=== PATIENT | male | born 1970 | race Caucasian/White ===

== ENCOUNTER 2018-02-12 18:18 | Emergency (ER) | payer SELFPAY ==
--- NOTE | 2018-02-12 19:20 | RAD REPORT ---
EXAM DESCRIPTION: RAD - Foot Right 3 View - 02/12/2018 7:13 pm CLINICAL HISTORY: Right foot pain and swelling FINDINGS: Soft tissue ulceration involves the lateral forefoot. No bony destructive lesion is seen. An old fracture of the fifth metatarsal is suspected. The bones are osteoporotic Large calcaneal spur is seen
--- NOTE | 2018-02-12 19:27 | EDPHYS ---
Physician Documentation [facility] Name: Krishna Fagan Age: 47 yrs Sex: Male : 1970 Arrival Date: 02/12/2018 Time: 18:21 Bed 14 Private MD: None, None ED Physician Baudilio Catherine HPI: 02/12 19:16 This 47 yrs old Male presents to ER via Ambulatory with complaints of Feet snw Swelling. 19:16 The patient presents with pain, swelling, to callus at lateral right foot. The snw complaints affect the right foot. Context: The problem was sustained at home. Onset: The symptoms/episode began/occurred gradually. Associated signs and symptoms: The patient has no apparent associated signs or symptoms. Severity of symptoms: At their worst the symptoms were moderate. It is unknown whether or not the patient has had similar symptoms in the past. The patient has been recently seen by a physician: other ED, labs performed per pt report, pt taking Cipro and Bactrim since Saturday 4 days ago. Historical: - Allergies: 18:27 PENICILLINS; hj - Home Meds: 18:27 Humulin 70/30 100 unit/mL (70-30) Sub-Q susp [Active]; gabapentin oral oral [Active]; hj - PMHx: 18:27 Diabetes - NIDDM; neuropathy; hj - PSHx: 18:27 Appendectomy; hj - Immunization history:: Adult Immunizations up to date. - Social history:: Smoking status: Patient/guardian denies using tobacco, Patient/guardian denies using alcohol. - Ebola Screening: : Patient negative for fever greater than or equal to 101.5 degrees Fahrenheit, and additional compatible Ebola Virus Disease symptoms Patient denies exposure to infectious person Patient denies travel to an Ebola-affected area in the 21 days before illness onset. ROS: 19:15 Constitutional: Negative for fever, chills, and weight loss, Eyes: Negative for injury, snw pain, redness, and discharge, ENT: Negative for injury, pain, and discharge, Neck: Negative for injury, pain, and swelling, Cardiovascular: Negative for chest pain, palpitations, and edema, Respiratory: Negative for shortness of breath, cough, wheezing, and pleuritic chest pain, Abdomen/GI: Negative for abdominal pain, nausea, vomiting, diarrhea, and constipation, Back: Negative for injury and pain, : Negative for injury, bleeding, discharge, and swelling, Skin: Negative for injury, rash, and discoloration, Neuro: Negative for headache, weakness, numbness, tingling, and seizure. 19:15 MS/extremity: Positive for pain, of the right foot. Exam: 19:06 Constitutional: This is a well developed, well nourished patient who is awake, alert, snw and in no acute distress. Head/Face: Normocephalic, atraumatic. Eyes: Pupils equal round and reactive to light, extra-ocular motions intact. Lids and lashes normal. Conjunctiva and sclera are non-icteric and not injected. Cornea within normal limits. Periorbital areas with no swelling, redness, or edema. Chest/axilla: Normal chest wall appearance and motion. Nontender with no deformity. No lesions are appreciated. Cardiovascular: Regular rate and rhythm with a normal S1 and S2. No gallops, murmurs, or rubs. Normal PMI, no JVD. No pulse deficits. Respiratory: Lungs have equal breath sounds bilaterally, clear to auscultation and percussion. No rales, rhonchi or wheezes noted. No increased work of breathing, no retractions or nasal flaring. Abdomen/GI: Soft, non-tender, with normal bowel sounds. No distension or tympany. No guarding or rebound. No evidence of tenderness throughout. Back: No spinal tenderness. No costovertebral tenderness. Full range of motion. MS/ Extremity: Pulses equal, no cyanosis. Neurovascular intact. Full, normal range of motion. Neuro: Awake and alert, GCS 15, oriented to person, place, time, and situation. Cranial nerves II-XII grossly intact. Motor strength 5/5 in all extremities. Sensory grossly intact. Cerebellar exam normal. Normal gait. Psych: Awake, alert, with orientation to person, place and time. Behavior, mood, and affect are within normal limits. 19:06 Skin: Appearance: Color: pale, lesion(s), noted, and can be described as raised, opened callus to right lateral midfoot with minimal surrounding erythema. Vital Signs: 18:28 BP 125 / 85; Pulse 101; Resp 18; Temp 97.8(TE); Pulse Ox 97% on R/A; Weight 97.52 kg; hj Height 5 ft. 11 in. (180.34 cm); Pain 10/10; 19:22 BP 128 / 90; Pulse 92; Resp 18; Pulse Ox 96% on R/A; Pain 10/10; jb4 18:28 Body Mass Index 29.99 (97.52 kg, 180.34 cm) hj MDM: 18:54 Patient medically screened. snw 19:28 Data reviewed: vital signs, nurses notes. Data interpreted: Pulse oximetry: on room air snw is 96 %. Interpretation: acceptable. Counseling: I had a detailed discussion with the patient and/or guardian regarding: the historical points, exam findings, and any diagnostic results supporting the discharge/admit diagnosis, the presence of at least one elevated blood pressure reading (>120/80) during this emergency department visit, radiology results, the need for outpatient follow up, to return to the emergency department if symptoms worsen or persist or if there are any questions or concerns that arise at home. Special discussion: I have referred the patient to see his PCP for further evaluation of high blood pressure. I discussed in detail with the patient the higher chance of wound infection based on his presenting history. Based on the history and exam findings, there is no indication for further emergent testing or inpatient evaluation. I discussed with the patient/guardian the need to see the department specialist for further evaluation of the symptoms. I discussed with the patient/guardian the need to see the primary care provider for further evaluation of the symptoms. 02/12 18:53 Order name: Foot Right 3 View XRAY; Complete Time: 19:24 snw 02/12 19:05 Order name: FSBS; Complete Time: 19:23 snw 02/12 19:25 Order name: Wound Care; Complete Time: 19:37 snw Administered Medications: 19:37 Drug: [place] 5 mg-325 mg 1 tabs Route: PO; jb4 19:37 Drug: Hibiclens 4 % 1 application Route: Topical; Site: wound; jb4 Point of Care Testing: Blood Glucose: 19:22 Blood Glucose: 254 mg/dL; jb4 Ranges: Critical Glucose Levels:Adult <50 mg/dl or >400 mg/dl <40 mg/dl or >180 mg/dl Disposition: 02/13 07:14 Co-signature as Attending Physician, Baudilio Catherine MD I agree with the assessment and lulu plan of care. Disposition: 02/12/18 19:26 Discharged to Home. Impression: Pain in right foot. - Condition is Stable. - Discharge Instructions: Musculoskeletal Pain, Heat Therapy. - Prescriptions for Tylenol- Codeine #3 300-30 mg Oral Tablet - take 2 tablets by ORAL route every 6 hours As needed; 10 tablet. - Work release form, Medication Reconciliation Form, Thank You Letter, Antibiotic Education, Prescription Opioid Use form. - Follow up: Private Physician; When: Tomorrow; Reason: Recheck today's complaints, Continuance of care, Re-evaluation by your physician. Follow up: Emergency Department; When: As needed; Reason: Worsening of condition. - Notes: Please continue Cipro and Bactrim as directed per [facility] Signatures: Dispatcher [employer] EDMS Baudilio Catherine MD MD cha Therrien, Shelly, MAINTENANCE AND UTILITIES SUPERVISOR-C MAINTENANCE AND UTILITIES SUPERVISOR-Csnw Jean Marie Miller RN RN Elier Zuniga RN RN jb4 Corrections: (The following items were deleted from the chart) 02/12 19:53 19:26 02/12/2018 19:26 Discharged to Home. Impression: Pain in right foot. Condition is jb4 Stable. Forms are Medication Reconciliation Form, Thank You Letter, Antibiotic Education, Prescription Opioid Use. Follow up: Private Physician; When: Tomorrow; Reason: Recheck today's complaints, Continuance of care, Re-evaluation by your physician. Follow up: Emergency Department; When: As needed; Reason: Worsening of condition. snw
--- NOTE | 2018-02-12 19:27 | ER ---
Nurse's Notes [facility] Name: Krishna Fagan Age: 47 yrs Sex: Male : 1970 Arrival Date: 02/12/2018 Time: 18:21 Bed 14 Private MD: None, None Diagnosis: Pain in right foot Presentation: 02/12 18:23 Presenting complaint: Patient states: i have a large decubitus ulcer on the R side of hj my R foot, went to [facility], they did blood work, started with Cipro and Bactrim, but i feel its getting worse; it is foul smelling and its draining black colored discharges; reports fever and chills; pain is 10/10;. Transition of care: patient was not received from another setting of care. Onset of symptoms was February 12, 2018. Risk Assessment: Do you want to hurt yourself or someone else? Patient reports no desire to harm self or others. Initial Sepsis Screen: Does the patient meet any 2 criteria? No. Patient's initial sepsis screen is negative. Does the patient have a suspected source of infection? No. Patient's initial sepsis screen is negative. Care prior to arrival: None. 18:23 Method Of Arrival: Ambulatory 18:23 Acuity: GENNY 3 hj Triage Assessment: 18:27 General: Appears in no apparent distress. uncomfortable, Behavior is calm, cooperative, hj appropriate for age. Pain: Complains of pain in right foot. Historical: - Allergies: 18:27 PENICILLINS; hj - Home Meds: 18:27 Humulin 70/30 100 unit/mL (70-30) Sub-Q susp [Active]; gabapentin oral oral [Active]; hj - PMHx: 18:27 Diabetes - NIDDM; neuropathy; hj - PSHx: 18:27 Appendectomy; hj - Immunization history:: Adult Immunizations up to date. - Social history:: Smoking status: Patient/guardian denies using tobacco, Patient/guardian denies using alcohol. - Ebola Screening: : Patient negative for fever greater than or equal to 101.5 degrees Fahrenheit, and additional compatible Ebola Virus Disease symptoms Patient denies exposure to infectious person Patient denies travel to an Ebola-affected area in the 21 days before illness onset. Screenin:28 Abuse screen: Denies threats or abuse. Denies injuries from another. Nutritional hj screening: No deficits noted. Tuberculosis screening: No symptoms or risk factors identified. Fall Risk None identified. Assessment: 18:45 General: Appears in no apparent distress. uncomfortable, Behavior is cooperative, bp appropriate for age, anxious. Pain: Complains of pain in right foot. Neuro: Level of Consciousness is awake, alert, obeys commands, Oriented to person, place, time, situation, Appropriate for age. Cardiovascular: No deficits noted. Respiratory: Airway is patent Respiratory effort is even, unlabored, Respiratory pattern is regular, symmetrical. GI: No signs and/or symptoms were reported involving the gastrointestinal system. : No signs and/or symptoms were reported regarding the genitourinary system. EENT: No deficits noted. Derm: Wound noted right foot. Musculoskeletal: Circulation, motion, and sensation intact. Range of motion: intact in all extremities. Vital Signs: 18:28 BP 125 / 85; Pulse 101; Resp 18; Temp 97.8(TE); Pulse Ox 97% on R/A; Weight 97.52 kg; hj Height 5 ft. 11 in. (180.34 cm); Pain 10/10; 19:22 BP 128 / 90; Pulse 92; Resp 18; Pulse Ox 96% on R/A; Pain 10/10; jb4 18:28 Body Mass Index 29.99 (97.52 kg, 180.34 cm) hj ED Course: 18:21 Patient arrived in ED. mr 18:21 None, None is Private Physician. mr 18:26 Triage completed. hj 18:28 Arm band placed on left wrist. hj 18:28 Patient has correct armband on for positive identification. Placed in gown. Bed in low hj position. Call light in reach. Side rails up X 1. Adult w/ patient. 18:36 Nahum Villarreal, LIO is Primary Nurse. bp 18:54 Елена Light FNP-C is PHCP. snw 18:54 Baudilio Catherine MD is Attending Physician. snw 19:11 X-ray completed. Portable x-ray completed in exam room. Patient tolerated procedure az well. 19:13 Foot Right 3 View XRAY In Process Unspecified. EDMS 19:50 Ortho shoe applied to. jb4 19:50 No provider procedures requiring assistance completed. Patient did not have IV access jb4 during this emergency room visit. Administered Medications: 19:37 Drug: [place] 5 mg-325 mg 1 tabs Route: PO; jb4 19:37 Drug: Hibiclens 4 % 1 application Route: Topical; Site: wound; jb4 Point of Care Testing: Blood Glucose: 19:22 Blood Glucose: 254 mg/dL; jb4 Ranges: Outcome: 19:26 Discharge ordered by MD. thurston 19:50 Discharged to home ambulatory. jb4 19:50 Condition: stable 19:50 Discharge instructions given to patient, family, Instructed on discharge instructions, follow up and referral plans. medication usage, Demonstrated understanding of instructions, follow-up care, medications, Prescriptions given X 1. 19:53 Patient left the ED. jb4 Signatures: Dispatcher [employer] EDMS Елена Light, POLYMER SPECIALIST-C POLYMER SPECIALIST-Csnriver DonavonConsuelo mr BloomJean Marie pike RN RN hj Bryson, James, RN RN jb4 Nahum Villarreal RN RN bp Zavala, Araceli az
[2018-02-12] MEDS ORDERED: HYDROCODONE/APAP 5/325 MG TAB ONE (19:36)
== END 2018-02-12 19:53 | disposition home or self-care (01) ==
LOC: ER 18:18
DX: M79.671 Pain in right foot (principal); E11.40 Type 2 diabetes mellitus with diabetic neuropathy, unspecified; Z79.4 Long term (current) use of insulin; Z88.0 Allergy status to penicillin
CPT/HCPCS: 82962; 99284

== ENCOUNTER 2018-04-14 12:31 | Emergency (ER) | payer OTHER, SELFPAY ==
--- OUTSIDE RECORDS SUMMARY | 2018-04-14 12:34 | XMS REPORT ---
:1970 [facility] Address [address] [place] [address] [place] [id number] Care Team Providers Name Role Phone Unavailable Unavailable Unavailable Problems This patient has no known problems. Allergies, Adverse Reactions, Alerts This patient has no known allergies or adverse reactions. Medications This patient has no known medications.
[2018-04-14] MEDS ORDERED: ONDANSETRON 4 MG/2 ML VIAL ONE (14:21)
[2018-04-14] MEDS ORDERED: NA CHLORIDE 0.9% 1,000 ML ONE (14:21)
--- NOTE | 2018-04-14 14:29 | RAD REPORT ---
EXAM DESCRIPTION: CT - Stone Protocol - 04/14/2018 2:13 pm CLINICAL HISTORY: Flank pain. ABD PAIN COMPARISON: No comparisons TECHNIQUE: Axial images were obtained without oral or IV contrast. Lack of contrast limits solid org an and vascular assessment. The [id number] spans the entirety of the system partially obscuring uppermost abdomen and lung bases. Coronal reformatted images were obtained and reviewed. All CT scans are performed using dose optimization technique as appropriate and may include automated exposure control or mA/KV adjustment according to patient size. FINDINGS: The lower lung orellana are clear. The hepatic size is mildly prominent. Gallbladder appears mildly distended. Spleen is normal in size. The pancreas and adrenal glands are normal. No pathologic lymphadenopathy in the abdomen or pelvis. No urinary tract stones or obstructive uropathy. No bowel obstruction, free air, free fluid or abscess. Appendectomy. No significant bony abnormality. IMPRESSION: Hepatomegaly. Mild gallbladder distention.
[2018-04-14 14:38] LABS: Absolute Lymphocytes (CBC) 1.5 K/uL (0.7-4.9); Absolute Monocytes 0.7 K/uL (0.1-1.3); Absolute Neutrophil 8.1 K/uL (1.8-8.0); Basophils % 0.5 % (0-1.3); Eosinophils % 1.1 % (0-4.4); Hematocrit 34.9 % (39.6-49.0); Lymphocytes % 14.4 % (15.3-44.8); MCH 29.9 pg (27.0-35.0); MCV 85.1 fL (80-100)
[2018-04-14 14:46] LABS: Albumin 2.9 g/dL (3.4-5.0); Bilirubin Direct 0.1 mg/dL (0-0.2); Bilirubin Total 0.3 mg/dL (0.2-1.0); Protein, Total 9.3 g/dL (6.4-8.2)
[2018-04-14] MEDS ORDERED: SUCRALFATE 1 GM TABLET ONE (16:03)
[2018-04-14] MEDS ORDERED: METOCLOPRAMIDE 10 MG/2mL INJ ONE (17:15)
--- NOTE | 2018-04-14 17:46 | ER ---
Nurse's Notes [facility] Name: Krishna Fagan Age: 47 yrs Sex: Male : 1970 Arrival Date: 04/14/2018 Time: 12:36 Bed 18 Private MD: Diagnosis: Vomiting;Dehydration Presentation: 04/14 12:36 Presenting complaint: EMS states: i have been vomiting for 9 days and the zofran tw2 [place] gave me is not helping. Transition of care: patient was not received from another setting of care. Onset of symptoms was April 14, 2018. Risk Assessment: Do you want to hurt yourself or someone else? Patient reports no desire to harm self or others. Initial Sepsis Screen: Does the patient meet any 2 criteria? No. Patient's initial sepsis screen is negative. Does the patient have a suspected source of infection? No. Patient's initial sepsis screen is negative. Care prior to arrival: Medication(s) given: zofran IM, multiple failed iv attempts via ems. 12:36 Method Of Arrival: EMS: [facility] [place] [place] [facility] tw2 12:36 Acuity: GENNY 3 tw2 Historical: - Allergies: 12:41 PENICILLINS; tw2 - Home Meds: 12:41 Humulin 70/30 100 unit/mL (70-30) Sub-Q susp [Active]; gabapentin Oral [Active]; tw2 - PMHx: 12:41 neuropathy; Diabetes - IDDM; tw2 - PSHx: 12:41 Appendectomy; tw2 - Immunization history:: Adult Immunizations. - Social history:: Smoking status: . - Ebola Screening: : Patient negative for fever greater than or equal to 101.5 degrees Fahrenheit, and additional compatible Ebola Virus Disease symptoms Patient denies travel to an Ebola-affected area in the 21 days before illness onset. Screenin:43 Abuse screen: Denies threats or abuse. Nutritional screening: No deficits noted. tw2 Tuberculosis screening: No symptoms or risk factors identified. Fall Risk None identified. Assessment: 12:40 General: Appears in no apparent distress. Behavior is calm, cooperative, appropriate tw2 for age. Pain: Complains of pain in mid-sternal area, epi-gastric pain. Neuro: Level of Consciousness is awake, alert, obeys commands, Oriented to person, place, time, situation. Cardiovascular: Heart tones S1 S2 Patient's skin is warm and dry. Respiratory: Airway is patent Respiratory effort is even, unlabored, Respiratory pattern is regular, symmetrical, Breath sounds are clear bilaterally. GI: Abdomen is round distended, Bowel sounds present X 4 quads. Reports nausea, vomiting, for 9 days, they gave zofran but i cant keep it down. : No signs and/or symptoms were reported regarding the genitourinary system. EENT: No signs and/or symptoms were reported regarding the EENT system. Derm: Skin is intact, with poor turgor Skin is dry, Skin is pale. Musculoskeletal: Range of motion: intact in all extremities. 13:42 Reassessment: dr. delgado at bedside at this time. tw2 15:00 Reassessment: Patient appears in no apparent distress at this time. No changes from tw2 previously documented assessment. Patient and/or family updated on plan of care and expected duration. Pain level reassessed. 16:02 Reassessment: Patient appears in no apparent distress at this time. No changes from tw2 previously documented assessment. Patient and/or family updated on plan of care and expected duration. Pain level reassessed. 16:11 Reassessment: pt states "i just feel this burning up here, cant they just keep me tw2 overnight to monitor me", provider notified. 17:11 Reassessment: Patient appears in no apparent distress at this time. No changes from tw2 previously documented assessment. Patient and/or family updated on plan of care and expected duration. Pain level reassessed. 17:49 Reassessment: Patient appears in no apparent distress at this time. Patient and/or tw2 family updated on plan of care and expected duration. Pain level reassessed. Patient states feeling better. Vital Signs: 12:37 Temp 98.9(O); tw2 12:39 BP 154 / 89; Pulse 99; Resp 17; Pulse Ox 98% on R/A; tw2 13:28 BP 142 / 79; Pulse 91; Resp 17; Pulse Ox 97% on R/A; tw2 15:00 BP 147 / 88; Pulse 94; Resp 17; Pulse Ox 96% on R/A; tw2 16:02 BP 162 / 93; Pulse 92; Resp 17; Pulse Ox 96% on R/A; tw2 17:10 BP 160 / 93; Pulse 87; Resp 17; Pulse Ox 95% on R/A; tw2 17:49 BP 151 / 99; Pulse 86; Resp 17; Pulse Ox 99% on R/A; tw2 ED Course: 12:36 Patient arrived in ED. tw2 12:37 Triage completed. tw2 12:37 Arm band placed on. tw2 12:39 Carmen Torres RN is Primary Nurse. tw2 12:41 Side rails up X2. Adult w/ patient. residential monitor on. Pulse ox on. NIBP on. tw2 12:52 Wagner Delgado MD is Attending Physician. gs 13:08 Missed attempt(s): 22 gauge in right antecubital area. Bleeding controlled, band aid tw2 applied, catheter tip intact. Missed attempt(s): 22 gauge in left wrist. Bleeding controlled, band aid applied, catheter tip intact. 13:42 Missed attempt(s): 22 gauge in right forearm. per Maynor Morales, notified Dr. Delgado. tw2 14:11 Inserted saline lock: 18 gauge in right upper arm, using aseptic technique. ,using tw2 aseptic technique. per LIO Sidhu using US guided technique Blood collected. 14:12 CT completed. Patient tolerated procedure well. Patient moved to CT via wheelchair. sj Patient moved back from CT. 14:23 CT Stone Protocol In Process Unspecified. EDMS 16:01 Troponin I Sent. tw2 16:02 EKG done, by supply chain tech. reviewed by Wagner Delgado MD. dt2 17:49 No provider procedures requiring assistance completed. IV discontinued, intact, tw2 bleeding controlled, No redness/swelling at site. Pressure dressing applied. Administered Medications: 14:22 Drug: NS 0.9% 1000 ml Route: IV; Rate: 1 bolus; Site: right upper arm; tw2 16:01 Follow up: Response: No adverse reaction; IV Status: Completed infusion; IV Intake: tw2 1000ml 14:22 Drug: Zofran 4 mg Route: IVP; Site: right upper arm; tw2 16:01 Follow up: Response: No adverse reaction; Nausea is decreased tw2 15:56 Drug: CarafATE 1 grams Route: PO; tw2 17:10 Follow up: Response: No adverse reaction tw2 17:10 Drug: Reglan 10 mg Route: IVP; Site: right upper arm; tw2 17:49 Follow up: Response: No adverse reaction; Nausea is decreased tw2 Intake: 16:01 IV: 1000ml; Total: 1000ml. tw2 Outcome: 17:45 Discharge ordered by . 17:50 Discharged to home ambulatory, with significant other. tw2 17:50 Condition: stable 17:50 Discharge instructions given to patient, significant other, Instructed on discharge instructions, follow up and referral plans. medication usage, Demonstrated understanding of instructions, follow-up care, medications, Prescriptions given X 2. 17:50 Patient left the ED. tw2 Signatures: Dispatcher [employer] Lisa Cooper Tara, RN RN tw2 Wagner Delgado MD MD gs Teague, Danielle dt2
--- NOTE | 2018-04-14 17:46 | EDPHYS ---
Physician Documentation [facility] Name: Krishna Fagan Age: 47 yrs Sex: Male : 1970 Arrival Date: 04/14/2018 Time: 12:36 Bed 18 Private MD: ED Physician Wagner Perez HPI: 04/14 18:39 This 47 yrs old Male presents to ER via EMS with complaints of Vomiting. gs 18:39 Onset: The symptoms/episode began/occurred 3 day(s) ago. Possible causes: dx with flu. gs The symptoms are aggravated by nothing. The symptoms are alleviated by nothing. Associated signs and symptoms: Pertinent negatives: abdominal pain, anorexia, GI bleeding. Severity of symptoms: At their worst the symptoms were moderate in the emergency department the symptoms are unchanged. The patient has experienced similar episodes in the past, a few times. The patient has been recently seen by a physician: zuleyma moore. Historical: - Allergies: 12:41 PENICILLINS; tw2 - Home Meds: 12:41 Humulin 70/30 100 unit/mL (70-30) Sub-Q susp [Active]; gabapentin Oral [Active]; tw2 - PMHx: 12:41 neuropathy; Diabetes - IDDM; tw2 - PSHx: 12:41 Appendectomy; tw2 - Immunization history:: Adult Immunizations. - Social history:: Smoking status: . - Ebola Screening: : Patient negative for fever greater than or equal to 101.5 degrees Fahrenheit, and additional compatible Ebola Virus Disease symptoms Patient denies travel to an Ebola-affected area in the 21 days before illness onset. ROS: 18:39 All other systems are negative. gs Exam: 18:39 Head/Face: Normocephalic, atraumatic. Eyes: Pupils equal round and reactive to light, gs extra-ocular motions intact. Lids and lashes normal. Conjunctiva and sclera are non-icteric and not injected. Cornea within normal limits. Periorbital areas with no swelling, redness, or edema. ENT: Nares patent. No nasal discharge, no septal abnormalities noted. Tympanic membranes are normal and external auditory canals are clear. Oropharynx with no redness, swelling, or masses, exudates, or evidence of obstruction, uvula midline. Mucous membranes moist. Neck: Trachea midline, no thyromegaly or masses palpated, and no cervical lymphadenopathy. Supple, full range of motion without nuchal rigidity, or vertebral point tenderness. No Meningismus. Chest/axilla: Normal chest wall appearance and motion. Nontender with no deformity. No lesions are appreciated. Cardiovascular: Regular rate and rhythm with a normal S1 and S2. No gallops, murmurs, or rubs. Normal PMI, no JVD. No pulse deficits. Respiratory: Lungs have equal breath sounds bilaterally, clear to auscultation and percussion. No rales, rhonchi or wheezes noted. No increased work of breathing, no retractions or nasal flaring. Back: No spinal tenderness. No costovertebral tenderness. Full range of motion. Skin: Warm, dry with normal turgor. Normal color with no rashes, no lesions, and no evidence of cellulitis. MS/ Extremity: Pulses equal, no cyanosis. Neurovascular intact. Full, normal range of motion. Neuro: Awake and alert, GCS 15, oriented to person, place, time, and situation. Cranial nerves II-XII grossly intact. Motor strength 5/5 in all extremities. Sensory grossly intact. Cerebellar exam normal. Normal gait. 18:39 Constitutional: The patient appears alert, awake, pale, uncomfortable. 18:39 ECG was reviewed by the Attending Physician. 18:39 Abdomen/GI: Palpation: mild abdominal tenderness, in all quadrants, rebound tenderness, is not appreciated. Vital Signs: 12:37 Temp 98.9(O); tw2 12:39 BP 154 / 89; Pulse 99; Resp 17; Pulse Ox 98% on R/A; tw2 13:28 BP 142 / 79; Pulse 91; Resp 17; Pulse Ox 97% on R/A; tw2 15:00 BP 147 / 88; Pulse 94; Resp 17; Pulse Ox 96% on R/A; tw2 16:02 BP 162 / 93; Pulse 92; Resp 17; Pulse Ox 96% on R/A; tw2 17:10 BP 160 / 93; Pulse 87; Resp 17; Pulse Ox 95% on R/A; tw2 17:49 BP 151 / 99; Pulse 86; Resp 17; Pulse Ox 99% on R/A; tw2 MDM: 13:48 Patient medically screened. gs 18:39 Differential diagnosis: gastritis, viral gastroenteritis, gastroenteritis, dka. Data gs reviewed: vital signs, nurses notes, lab test result(s), EKG, radiologic studies. Response to treatment: the patient's symptoms have markedly improved after treatment, the patient's condition has returned to base line, patient is well hydrated. and as a result, I will discharge patient. 04/14 13:50 Order name: Basic Metabolic Panel; Complete Time: 15:12 gs 04/14 13:50 Order name: CBC with Diff; Complete Time: 15:12 gs 04/14 13:50 Order name: Hepatic Function; Complete Time: 15:12 gs 04/14 13:50 Order name: Lipase; Complete Time: 15:12 gs 04/14 13:52 Order name: Glucose, Ancillary Testing; Complete Time: 14:37 EDMS 04/14 15:43 Order name: Troponin I; Complete Time: 16:30 gs 04/14 13:50 Order name: IV Saline Lock; Complete Time: 14:11 gs 04/14 13:50 Order name: Labs collected and sent; Complete Time: 14:11 gs 04/14 13:50 Order name: CT Stone Protocol; Complete Time: 14:37 gs 04/14 15:43 Order name: EKG; Complete Time: 15:44 gs 04/14 15:43 Order name: EKG - Nurse/Tech; Complete Time: 16:01 gs EC:39 Rate is 91 beats/min. Rhythm is regular. SC interval is normal. QRS interval is normal. gs T waves are Flattened. Clinical impression: NSR w/ Non-specific ST/T Changes. Interpreted by me. Administered Medications: 14:22 Drug: NS 0.9% 1000 ml Route: IV; Rate: 1 bolus; Site: right upper arm; tw2 16:01 Follow up: Response: No adverse reaction; IV Status: Completed infusion; IV Intake: tw2 1000ml 14:22 Drug: Zofran 4 mg Route: IVP; Site: right upper arm; tw2 16:01 Follow up: Response: No adverse reaction; Nausea is decreased tw2 15:56 Drug: CarafATE 1 grams Route: PO; tw2 17:10 Follow up: Response: No adverse reaction tw2 17:10 Drug: Reglan 10 mg Route: IVP; Site: right upper arm; tw2 17:49 Follow up: Response: No adverse reaction; Nausea is decreased tw2 Disposition: 04/14/18 17:45 Discharged to Home. Impression: Vomiting, Dehydration. - Condition is Stable. - Discharge Instructions: Nausea and Vomiting, Adult. - Prescriptions for Reglan 5 mg Oral tablet - take 1 tablet by ORAL route 4 times per day As needed 30 minutes before meals and at bedtime; 20 tablet. Pepcid 20 mg Oral Tablet - take 1 tablet by ORAL route once daily; 20 tablet. - Medication Reconciliation Form, Thank You Letter, Antibiotic Education, Prescription Opioid Use form. - Follow up: Private Physician; When: 1 - 2 days; Reason: Re-evaluation by your physician. Signatures: Dispatcher [employer] EDMS Carmen Torres RN RN tw2 Wagner Perez MD MD gs Corrections: (The following items were deleted from the chart) 17:50 17:45 04/14/2018 17:45 Discharged to Home. Impression: Vomiting; Dehydration. Condition tw2 is Stable. Forms are Medication Reconciliation Form, Thank You Letter, Antibiotic Education, Prescription Opioid Use. Follow up: Private Physician; When: 1 - 2 days; Reason: Re-evaluation by your physician. gs
--- NOTE | 2018-04-15 07:06 | EKG ---
Test Date: 2018-04-14 Test Time: 15:47:22 Developer Relations Manager: ANDREW MEASUREMENT RESULTS: Intervals: Rate: 91 MS: 148 QRSD: 86 QT: 362 QTc: 445 [place]: P: 29 MS: 148 QRS: -3 T: -2 INTERPRETIVE STATEMENTS: Normal sinus rhythm Normal ECG No previous ECG available for comparison Electronically Signed On 04-15-18 07:05:32 [employer] WEB ARCHITECT by Sam Santos
== END 2018-04-14 17:50 | disposition home or self-care (01) ==
LOC: ER 12:31
DX: E86.0 Dehydration (principal); E11.9 Type 2 diabetes mellitus without complications; Z79.4 Long term (current) use of insulin; Z88.0 Allergy status to penicillin
CPT/HCPCS: 36415; 74176; 76377; 80048; 80076; 82962; 83690; 84484; 85025; 93005; 96361; 96374; 96375; 99285; J2405; J2765; J7030